=== PATIENT | male | born 1975 | race Caucasian/White ===

== ENCOUNTER 2022-01-25 10:45 | Outpatient (RCR) | payer OTHER, SELFPAY | END 2022-03-18 11:21 | disposition home or self-care (01) | PROVIDERS: PCP Family Medicine; Visit Provider Family Medicine | DX: M54.50 Low back pain, unspecified (principal); Z51.89 Encounter for other specified aftercare | CPT/HCPCS: 97032; 97110; 97140; 97161; 97535 ==

== ENCOUNTER 2022-01-31 13:33 | Outpatient (CLI) | payer OTHER, SELFPAY ==
--- NOTE | 2022-01-31 13:45 | CRLHL7_ITS ---
For Patients: As a result of the 21st Century Cures Act, medical imaging exams and procedure reports are released immediately into your electronic medical record. You may view this report before your referring provider. If you have questions, please contact your health care provider. Indication: Low back pain Technique: Noncontrast sagittal and axial T1, T2, and sagittal STIR sequences are provided. Comparison: No prior studies available for comparison at this institution. Findings: Normal lumbar spinal alignment. Vertebral body heights are maintained. No fractures. There are 5 lumbar type vertebral bodies. The conus medullaris is normal in signal and located at L2 level. Disc desiccation at L3-4 through L5-S1. Exophytic right renal cyst. Modic type 2 endplate degenerative changes in the anterior superior corner of the L4 and L5 vertebral bodies. T12-L1: Normal disc and facet joints. No significant spinal canal stenosis or neural foramen narrowing. L1-2: Normal disc and facet joints. No significant spinal canal stenosis or neural foramen narrowing. L2-3: Normal disc and facet joints. No significant spinal canal stenosis or neural foramen narrowing. L3-4: Disc desiccation. Mild disc bulge. Small central high intensity zone. Mild indentation of thecal sac without significant spinal canal stenosis. Mild neural foramen narrowing L4-5: Disc desiccation. Disc bulge with broad-based central disc extrusion with 7 mm cephalad migration results in indentation of the thecal sac and contact with the traversing bilateral L5 nerve roots, and results in mild spinal canal stenosis. The herniation measures 14 mm transversely x 5 mm AP. No neural foramina narrowing L5-S1: Disc desiccation. Mild disc space narrowing. There is a left central disc extrusion with 9 mm cephalad migration that displaces and likely impinges the traversing left S1 nerve roots (series 5, image 11). The herniation measures 17 mm transversely x 6 mm AP. Mild neural foramen narrowing bilaterally. Impression: 1. Normal alignment. No fractures. 2. At L5-S1, left central disc extrusion with cephalad migration displaces and likely impinges the traversing left S1 nerve roots. Mild foramen stenosis bilaterally. 3. At L4-5, central disc extrusion with cephalad migration contacts the bilateral L5 traversing nerve roots and results in mild spinal canal stenosis. 4. At L3-4, disc bulge with small central high intensity zone without spinal canal stenosis. Mild foramina narrowing bilaterally. Dictated by Rubens Wynn MD @ 02/02/2022 8:32:02 AM (Electronically Signed)
== END 2022-01-31 13:34 | disposition home or self-care (01) ==
LOC: MRI 13:34
PROVIDERS: PCP Family Medicine; Visit Provider Family Medicine
DX: M54.50 Low back pain, unspecified (principal); G89.29 Other chronic pain; M51.27 Other intervertebral disc displacement, lumbosacral region; M51.26 Other intervertebral disc displacement, lumbar region; M51.36 Other intervertebral disc degeneration, lumbar region
CPT/HCPCS: 72148

== ENCOUNTER 2022-03-05 07:49 | Outpatient (CLI) | payer OTHER, SELFPAY | END 2022-03-05 07:50 | disposition home or self-care (01) | LOC: INJ CL 07:49 | PROVIDERS: PCP Family Medicine; Visit Provider Family Medicine | DX: M54.16 Radiculopathy, lumbar region (principal); M51.36 Other intervertebral disc degeneration, lumbar region | CPT/HCPCS: 62323; J0702; Q9966 ==

== ENCOUNTER 2024-01-27 08:14 | Outpatient (CLI) | payer OTHER, SELFPAY | END 2024-01-27 08:15 | disposition home or self-care (01) | LOC: INJ CL 08:15 | PROVIDERS: PCP Family Medicine; Visit Provider Family Medicine | DX: M54.16 Radiculopathy, lumbar region (principal); M51.36 Other intervertebral disc degeneration, lumbar region | CPT/HCPCS: 62323; J0702; Q9966 ==

== ENCOUNTER 2024-03-22 10:35 | Outpatient (CLI) | payer OTHER, SELFPAY | END 2024-03-22 10:36 | disposition home or self-care (01) | LOC: LKVREF 10:36 | PROVIDERS: PCP Family Medicine; Visit Provider Family Medicine | DX: Z00.00 Encounter for general adult medical examination without abnormal findings (principal); E78.00 Pure hypercholesterolemia, unspecified; I10 Essential (primary) hypertension; R79.89 Other specified abnormal findings of blood chemistry; Z12.5 Encounter for screening for malignant neoplasm of prostate | CPT/HCPCS: 80053; 80061; G0103 ==